=== PATIENT | male | born 1970 | race Caucasian/White ===

== ENCOUNTER 2018-03-03 13:19 | Inpatient (IN) | payer OTHER ==
[~2018-03-03] VITALS: Ht 182.9 cm; Wt 86.2 kg
--- NOTE | ~2018-03-03 | HC ---
[facility] [address] [place] [address] CONSULTATION Name: KENAN CURRAN V Room #: 463-P [facility] IN .R.#: [id number] Admission: 03/03/18 Attend Phys: Magaly Joshua Discharge: Date of : 74 Report #: [id number] THIS REPORT FOR: //name// CC: TAMERA physician/PCP Magaly Joshua DATE OF SERVICE: 03/04/2018 TYPE OF REPORT: Cardiology consultation. INDICATION: Syncope. HISTORY OF PRESENT ILLNESS: This is a 47-year-old gentleman presenting with an episode of chest pain and syncope. The patient reports he woke up yesterday with substernal chest pain, not associated with any diaphoresis or shortness of breath. There were no alleviating or aggravating factors. He got out of bed and went outside to his car. On the way there, he felt lightheaded and proceeded to pass out. He had a similar episode several months ago in December. He was admitted to [facility]. He reports having a tilt table test but nothing else. He did wear a monitor for a few days. He denies having a stress test during that admission. There is no history of fever, chills, cough, orthopnea or nausea. His initial troponin level is negative and the ECG reveals sinus rhythm. PAST MEDICAL HISTORY: Denies history of hypertension or diabetes. ALLERGIES: Includes CIPRO and SULFA. MEDICATIONS: None. SOCIAL HISTORY: Positive for tobacco use. Works as a treatment specialist. FAMILY HISTORY: Negative for premature CAD. REVIEW OF SYSTEMS: A full 10-point review of systems performed. Only the pertinent positives and negatives are described in the HPI. PHYSICAL EXAMINATION: VITAL SIGNS: Blood pressure is 120/70 and heart rate is 85 beats per minute. GENERAL APPEARANCE: A well-developed, well-nourished male in no acute respiratory distress. HEENT: Normocephalic and atraumatic. Oral mucosa moist. NECK: Supple. No JVD. LUNGS: Clear to auscultation. CARDIAC: Regular rate and rhythm. S1 and S2 positive. ABDOMEN: Soft and nontender. [facility] [address] [place] [address] CONSULTATION Name: MAGDYKENAN Wlae Room #: 463-P [facility] IN M.R.#: [id number] Admission: 03/03/18 Attend Phys: Magaly Joshua Discharge: Date of : 74 Report #: [id number] EXTREMITIES: No cyanosis. No edema. NEUROLOGICAL: Alert and oriented x 3. RADIOLOGICAL DATA: ECG reveals sinus rhythm, otherwise normal. LABORATORY DATA: Sodium is 136 and creatinine is 1.0. Troponin is negative. TSH is within normal limits. Urine screen is positive for marijuana. ASSESSMENT AND PLAN: 1. Chest pain syndrome, he reports having chest pains at rest and with exertion. The initial evaluation is unremarkable. He does report having chest discomfort while working. The plan is to proceed with stress testing. 2. Presyncope, seems to occur after having chest discomfort and may be related to vasovagal event. Other considerations include orthostatic hypotension, arrhythmia and neurologic process. By report, the orthostatics performed in the Emergency Room were negative. Continue with Telemetry at this time. I would like to obtain his previous workup performed at [facility]. Consider a neurologic evaluation as well. If no etiology is found, may need to consider prolonged monitoring. 3. Tobacco use, complete smoking cessation is advised. 4. Positive urine screen for marijuana, cessation advised as he has no medical condition to warrant chronic use. <ELECTRONICALLY SIGNED> By: Jovani Bonds MD 03/05/18 0807 [id number] Jovani Bonds MD /nt
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
--- NOTE | ~2018-03-03 | 2DMMODE ---
[facility] [address] [place] [address] 2 D/M-MODE ECHOCARDIOGRAM Name: KENAN CURRAN V Room #: 463-P ADM IN M.R.#: [id number] Admission: 03/03/18 Attend Phys: Magaly Hernandez Discharge: Date of : 74 Date of Service: 03/05/18 1006 Report #: [id number] THIS REPORT FOR: //name// APPROVED REPORT Study performed: 03/05/2018 08:57:16 EXAM: Comprehensive 2D, Doppler, and color-flow Echocardiogram Patient Location: Echo lab Room #: 3 Status: routine BSA: 2.08 HR: 59 bpm BP: 118/74 mmHg Rhythm: NSR Other Information Study Quality: Good Indications Syncope Chest Pain 2D Dimensions RVDd: 35.63 mm IVSd: 10.80 (7-11mm) LVOT Diam: 22.16 (18-24mm) LVDd: 40.59 mm PWd: 11.43 (7-11mm) Ascending Ao: 37.45 (22-36mm) LVDs: 27.82 (25-40mm) Aortic Root: 31.12 mm IVC: 15.00 mm Volumes Left Atrial Volume (Systole) Single Plane 4CH: 37.66 mL Single Plane 2CH: 34.09 mL LA ESV Index: 19.00 mL/m2 Aortic Valve AoV Peak Teo.: 1.32 m/s AO Peak Gr.: 7.02 mmHg LVOT Max P.22 mmHg LVOT Max V: 1.14 m/s BRAXTON Vmax: 3.32 cm2 Mitral Valve E/A Ratio: 1.9 MV Decel. Time: 229.44 ms [facility] [address] [email or web address] [address] 2 D/M-MODE ECHOCARDIOGRAM Name: KENAN CURRAN V Room #: 463-[facility]#: [id number] Admission: 03/03/18 Attend Phys: Magaly Hernandez Discharge: Date of : 74 Date of Service: 03/05/18 1006 Report #: [id number] MV E Max Teo.: 0.81 m/s MV A Teo.: 0.42 m/s MV PHT: 66.54 ms IVRT: 92.27 ms Pulmonary Valve PV Peak Teo.: 0.98 m/s PV Peak Gr.: 4.05 mmHg Pulmonary Vein P Vein S: 0.31 m/s P Vein A: 0.18 m/s P Vein D: 0.54 m/s P Vein A Dur.: 92.3 msec P Vein S/D Ratio: 0.57 Tricuspid Valve TR Peak Teo.: 1.95 m/s TR Peak Gr.: 15.14 mmHg PA Pressure: 20.00 mmHg Left Ventricle The left ventricle is normal size. There is normal LV segmental wall motion. There is normal left ventricular wall thickness. Left ventricular systolic function is normal. The left ventricular ejection fraction is within the normal range. LVEF is 55-60%. The left ventricular diastolic function is normal. Right Ventricle The right ventricle is normal size. The right ventricular systolic function is normal. Atria The left atrium size is normal. The right atrium size is normal. Aortic Valve The aortic valve is normal in structure. No aortic regurgitation is present. There is no aortic valvular stenosis. Mitral Valve The mitral valve is normal in structure. There is no mitral valve regurgitation noted. No evidence of mitral valve stenosis. Tricuspid Valve The tricuspid valve is normal in structure. There is trace tricuspid regurgitation. Estimated PAP 20 mmHg. There is no pulmonary hypertension. [address] [address] 2 D/M-MODE ECHOCARDIOGRAM Name: KENAN CURRAN V Room #: 463-P [facility] IN ..#: [id number] Admission: 03/03/18 Attend Phys: Magaly Hernandez Discharge: Date of : 74 Date of Service: 03/05/18 1006 Report #: [id number] Pulmonic Valve The pulmonary valve is normal in structure. There is no pulmonic valvular regurgitation. Great Vessels The aortic root is normal in size. IVC is normal in size and collapses >50% with inspiration. Pericardium There is no pericardial effusion. <Conclusion> The left ventricle is normal size. There is normal left ventricular wall thickness. Left ventricular systolic function is normal. The left ventricular diastolic function is normal. The right ventricle is normal size. The left atrium size is normal. The aortic valve is normal in structure. The mitral valve is normal in structure. There is trace tricuspid regurgitation. Estimated PAP 20 mmHg. <ELECTRONICALLY SIGNED> By: Jovani Bonds MD 03/05/18 1006 1006 1006 Jovani Bonds MD /INF
--- NOTE | ~2018-03-03 | EKG ---
[address] [address] ELECTROCARDIOGRAM REPORT Name: KENAN CURRAN V Room #: 463-P ADM IN M.R.#: [id number] Admission: 03/03/18 Attend Phys: Magaly Joshua Discharge: Date of : 74 Report #: [id number] THIS REPORT FOR: //name// [facility] ED Test Date: 2018-03-03 Test Time: 13:27:17 Pat Name: KENAN CURRAN Department: Room: 463 Gender: M [employer] Attendant: BRANDON : 1970 Requested By: Nicole Bauer Order Number: [id number] MD: Jovani Bonds Measurements Intervals [place] Rate: 81 P: 70 HI: 165 QRS: 66 QRSD: 87 T: 67 QT: 352 QTc: 409 Interpretive Statements Sinus rhythm No previous ECG available for comparison Electronically Signed On 03-04-2018 10:22:03 MANAGER CARDIAC by Jovani Bonds [email or web address] <ELECTRONICALLY SIGNED> By: Jovani Bonds MD 03/04/18 1022 1327 1327 Jovani Bonds MD /EPI
[2018-03-03 13:36] VITALS: BP 124/76
[2018-03-03 13:51] LABS: ABSOLUTE NEUTROPHILS 5.1 thou/uL (1.4-8.2); BASOPHILS 0.9 % (0.0-2.0); EOSINOPHILS 7.6 % (0.0-3.0); HEMATOCRIT 51.4 % (42.0-52.0); HEMOGLOBIN 17.5 gm/dL (14.0-18.0); LYMPHOCYTES 24.8 % (24.0-44.0); MCH 30.7 pg (26.0-34.0); MCV 90.2 fL (80.0-100.0); MONOCYTES 5.6 % (1.0-8.0); PLATELET COUNT 279 thou/uL (150-400); POLYS 61.1 % (36.0-66.0); RDW 14.2 % (10.5-14.5); WBC 8.4 thou/uL (4.0-11.0)
[2018-03-03 14:19] LABS: ANION GAP 3 mmol/L (7-16); BUN 16 mg/dL (7-18); CALCIUM 9.3 mg/dL (8.5-10.1); CHLORIDE 104 mmol/L (98-107); CO2 29 mmol/L (21-32); GLUCOSE 103 mg/dL (74-106); POTASSIUM 3.9 mmol/L (3.5-5.1); SODIUM 136 mmol/L (136-145)
[2018-03-03 14:27] LABS: ALBUMIN 3.7 g/dL (3.4-5.0); SGOT 20 U/L (15-37); SGPT 31 U/L (30-65); TOTAL BILIRUBIN 0.5 mg/dL (<0.1-1.0); TOTAL PROTEIN 7.5 g/dL (6.4-8.2); TROPONIN-I <0.06 ng/mL (<0.06)
[2018-03-03 15:38] LABS: CHOLESTEROL 194 mg/dL (<200); HDL CHOLESTEROL 40 mg/dL (>40); TC:HDL 4.9 Ratio (Not establshd); TRIGLYCERIDE 430 mg/dL (<150); VLDL 86 mg/dL (<40)
[2018-03-03 15:47] VITALS: BP 104/75
[2018-03-03 16:03] LABS: TSH 2.225 uIU/mL (0.358-3.740)
[2018-03-03 17:15] VITALS: BP 105/71
[2018-03-03 18:58] VITALS: BP 120/71
[2018-03-03 19:21] VITALS: BP 116/65
[2018-03-04 03:46] VITALS: BP 103/62
[2018-03-04 06:35] LABS: AMP/METHAMP Negative (Negative); BARBITURATES Negative (Negative); BENZODIAZEPINES Negative (Negative); COCAINE Negative (Negative); METHADONE Negative (Negative); OPIATES Negative (Negative); PCP Negative (Negative)
[2018-03-04 08:00] VITALS: BP 118/58
[2018-03-04 16:34] VITALS: BP 110/69
[2018-03-04 20:45] VITALS: BP 111/57
[2018-03-05 03:15] VITALS: BP 91/56
[2018-03-05 03:43] VITALS: BP 111/57
[2018-03-05 07:45] VITALS: BP 97/60
[2018-03-05 12:22] VITALS: BP 97/60
== END 2018-03-05 13:17 | disposition home or self-care (01) | DRG 312 ==
LOC: ER 13:19 → EROBS 15:32 → 4W 17:25 → ENTRNSPT 03-05 12:48 → EDTRNSPTSTS 03-05 12:53 → 4W 03-05 13:17
PROVIDERS: Hospitalist; Nurse Practitioner Family
DX: R55 Syncope and collapse (principal); R07.9 Chest pain, unspecified; F32.9 Major depressive disorder, single episode, unspecified; F17.210 Nicotine dependence, cigarettes, uncomplicated; F41.1 Generalized anxiety disorder; Z90.49 Acquired absence of other specified parts of digestive tract; Z88.1 Allergy status to other antibiotic agents; Z88.2 Allergy status to sulfonamides; Z71.6 Tobacco abuse counseling; Z28.21 Immunization not carried out because of patient refusal
CPT/HCPCS: 10045